=== PATIENT | female | born 1965 | race Two or more races ===

== ENCOUNTER 2017-12-11 16:56 | Emergency (ER) | payer MEDICAID ==
[~2017-12-11] VITALS: Ht 157.5 cm; Wt 69.0 kg
[2017-12-11 22:30] VITALS: BP 128/79
== END 2017-12-11 23:47 | disposition home or self-care (01) ==
LOC: ER 16:56
DX: S66.912A Strain of unspecified muscle, fascia and tendon at wrist and hand level, left hand, initial encounter (principal); S66.911A Strain of unspecified muscle, fascia and tendon at wrist and hand level, right hand, initial encounter; E78.00 Pure hypercholesterolemia, unspecified; M25.532 Pain in left wrist; M25.531 Pain in right wrist; R20.0 Anesthesia of skin; X58.XXXA Exposure to other specified factors, initial encounter; Y93.89 Activity, other specified; Y92.89 Other specified places as the place of occurrence of the external cause; Y99.8 Other external cause status
CPT/HCPCS: 99282